=== PATIENT | male | born 1975 | race Caucasian/White ===

== ENCOUNTER 2016-10-13 12:49 | Emergency (ER) | payer OTHER ==
--- NOTE | 2016-10-13 13:47 | RAD ---
INDICATION: Knee pain after fall COMPARISON: MRI knee April 22, 2016. FINDINGS: There is resection of the femur at the junction of the middle and distal third of the diaphysis with a prosthesis in place. There is a tibial component. Both components appear well seated. There is fluid around the joint space. IMPRESSION: POSTOPERATIVE CHANGE. NO EVIDENCE OF HARDWARE FAILURE.
[2016-10-13 14:18] VITALS: BP 107/65
--- NOTE | 2016-10-16 10:17 | ED ---
Lower Extremity - HPI Summary HPI Summary: Patient presents to ED with CC of knee pain after falling recently. He feels he may have fallen directly onto the hardware of the knee cap. 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 He is followed by [facility]. He denies any more intense pain, but there is some slight swelling to the lateral knee. He denies hitting his head, LOC. He is ambulating, but with some pain at baseline. Still using crutches. Pulses +2 bilaterally and cap refill < 2 sec. Denies any other health problems. Non-smoker. Lives with . Has close ortho follow up at [facility] and [facility]. Requesting images to make sure the hardware has not shifted or caused further damage to the knee. - History of Current Complaint Chief Complaint: EDExtremityLower Stated Complaint: NEEDS RT KNEE XRAY Time Seen by Provider: 10/13/16 12:57 Hx Obtained From: Patient Mechanism Of Injury: Direct Blow Onset of Pain: Immediate Onset/Duration: Days Severity Initially: Mild Severity Currently: Mild Pain Intensity: 2 Pain Scale Used: 0-10 Numeric Timing: Intermittent Location: Is Discrete @ - left knee Associated Signs And Symptoms: Positive: Swelling Aggravating Factor(s): Standing, Ambulation Alleviating Factor(s): Rest Able to Bear Weight: Yes - Risk Factors Gout Risk Factors: Age Over 40, Male DVT Risk Factors: Negative, Recent Surgery, Recent Trauma Septic Arthritis Risk Factor: Negative - Allergies/Home Medications Allergies/Adverse Reactions: Allergies Allergy/AdvReac Type Severity Reaction Status Date / Time Gluten Meal Allergy Unknown GI Verified 04/18/16 09:56 PMH/Surg Hx/FS Hx/Imm Hx Previously Healthy: Yes Endocrine/Hematology History: Denies: Hx Anticoagulant Therapy, Hx Blood Disorders, Hx Diabetes, Hx Anemia , Hx Unexplained Bleeding Cardiovascular History: Denies: Hx Congestive Heart Failure, Hx Hypertension, Hx Pacemaker/ICD Respiratory History: Reports: Hx Asthma - controlled with meds, Hx Pneumonia - 1994 History: Denies: Hx Renal Disease Sensory History: Denies: Hx Hearing Aid Psychiatric History: Denies: Hx Panic Disorder - Surgical History Surgery Procedure, Year, and Place: hernia repair age 3. Rt KNEE - REMOVAL TUMOR ( BENIGN) - Immunization History Hx Pertussis Vaccination: No Immunizations Up to Date: Unable to Obtain/Confirm Infectious Disease History: Denies: Traveled Outside the [place] in Last 30 Days - Family History Known Family History: Positive: Respiratory Disease - Social History Occupation: Employed Full-time Lives: With Family Alcohol Use: None Hx Substance Use: No Substance Use Type: Reports: None Hx Tobacco Use: No Smoking Status (MU): Never Smoked Tobacco Amount Used/How Often: 3packs per week Length of Time of Smoking/Using Tobacco: 17yr Have You Smoked in the Last Year: No Review of Systems Constitutional: Negative Negative: Fever, Fatigue Eyes: Negative Cardiovascular: Negative Negative: Chest Pain Respiratory: Negative Negative: Shortness Of Breath Positive: no symptoms reported Positive: Arthralgia - right knee pain and swelling Skin: Negative Psychological: Normal All Other Systems Reviewed And Are Negative: Yes Physical Exam Triage Information Reviewed: Yes Vital Signs On Initial Exam: Initial Vitals Temp Pulse Resp BP Pulse Ox 98.3 F 74 18 100/65 99 10/13/16 12:50 10/13/16 12:50 10/13/16 12:50 10/13/16 12:50 10/13/16 12:50 Vital Signs Reviewed: Yes Appearance: Positive: Well-Appearing, Well-Nourished Skin: Positive: Warm, Skin Color Reflects Adequate Perfusion. Negative: Numb, Tender Head/Face: Positive: Normal Head/Face Inspection Eyes: Positive: EOMI, LOCO, Conjunctiva Clear Neck: Positive: Supple, No Lymphadenopathy Respiratory/Lung Sounds: Positive: Clear to Auscultation, Breath Sounds Present Cardiovascular: Positive: Normal, RRR, Pulses are Symmetrical in both Upper and Lower Extremities. Negative: Tachycardia Musculoskeletal: Positive: Strength/ROM Intact, Pain @ - right knee with swelling. Negative: Scarlet Sign Left, Scarlet Sign Right, Edema Left, Edema Right Neurological: Positive: Speech Normal Psychiatric: Positive: Normal Diagnostics - Vital Signs Vital Signs Temp Pulse Resp BP Pulse Ox 10/13/16 14:17 98.9 F 68 17 107/65 10/13/16 12:50 98.3 F 74 18 100/65 99 - Laboratory Lab Statement: Any lab studies that have been ordered have been reviewed, and results considered in the medical decision making process. Lower Extremity Course/Dx - Course Course Of Treatment: Patient is sent to [facility]. Hardware in place with no acute findings. Patient made aware. He is Ok for discharge and will follow up with [facility] ortho. - Diagnoses Differential Diagnosis/HQI/PQRI: Positive: Fracture (Closed), Fracture (Open), Other - recent surgery Provider Diagnoses: Knee pain, acute Discharge - Discharge Plan Condition: Stable Disposition: HOME Patient Education Materials: Knee Pain (ED) Referrals: Chaitanya Sandoval MD [Primary Care Provider] - Wilfrido Zee MD [Medical Doctor] - Additional Instructions: Ibuprofen 600mg three times daily for pain and inflammation Ice Rest Elevate as needed for any swelling Follow up with ortho Call and make an appt to establish care.
== END 2016-10-13 14:20 | disposition home or self-care (01) ==
LOC: ED 12:49
DX: M25.561 Pain in right knee (principal); R60.9 Edema, unspecified
CPT/HCPCS: 99281

== ENCOUNTER 2017-02-19 07:59 | Emergency (ER) | payer OTHER ==
--- NOTE | 2017-02-19 08:56 | RAD ---
INDICATION: Right knee pain after a fall in a patient with a right knee prosthesis. COMPARISON: Similar radiograph dated October 13, 2016 TECHNIQUE: 5 view radiograph of the right knee. FINDINGS: The right knee prosthesis is anatomically aligned in the AP and lateral projections. There are cerclage wires overlying the distal femoral metaphysis are intact. There is no definite large joint effusion. There is no radiographic appearance of periprosthetic fracture or loosening. IMPRESSION: Anatomically aligned right knee prosthesis without evidence of fracture or loosening. If the patient's symptoms persist, follow-up imaging is recommended.
[2017-02-19 09:22] VITALS: BP 96/70
--- NOTE | 2017-02-19 18:52 | ED ---
Koko Mak Angela, scribed for Stephanie Villegas MD on 02/19/17 at 0818 . Lower Extremity - HPI Summary HPI Summary: This pt is a 41 y/o male presenting to [facility] c/o right knee pain s/p mechanical fall onto his right total knee replacement 2 days ago. Pt reports he slipped on ice and fell on his right knee. Pt states this is the second time he has fallen on right knee. The first time he fell on his right knee was on 10/13/16 where he had an XR done, which resulted negative. He notes he had a right knee replacement done at the end of July 2016 (done in [facility]) due to a giant cell benign tumor. He states it was in the condyle and "it had eaten the whole thing up," which is why he had to get a replacement done. Pt reports that he is able to bend his right knee, "but can't bend it as usual." Additionally, pt notes more swelling in the right knee than normal. He rates his pain 0/10 in severity currently. Pt is able to bear weight and ambulate with right lower extremity. NKDA. Pt denies taking any medications on a daily basis. Pt declines pain medication on initial encounter. - History of Current Complaint Chief Complaint: EDExtremityLower Stated Complaint: FALL, RIGHT KNEE INJURY Time Seen by Provider: 02/19/17 08:05 Hx Obtained From: Patient Mechanism Of Injury: Fall From A Standing Position Onset of Pain: Post Accident Onset/Duration: Still Present Severity Initially: Moderate Severity Currently: Mild Pain Intensity: 0 Pain Scale Used: 0-10 Numeric Timing: Constant, Lasting Days Location: Is Discrete @ - right knee Character Of Pain: Sharp Associated Signs And Symptoms: Positive: Swelling, Knee Pain. Negative: Redness , Bruising, Fever, Syncope, Abdominal Pain Aggravating Factor(s): Other - bending knee Alleviating Factor(s): Rest Able to Bear Weight: Yes - Allergies/Home Medications Allergies/Adverse Reactions: Allergies Allergy/AdvReac Type Severity Reaction Status Date / Time Gluten Meal Allergy Unknown GI Verified 04/18/16 09:56 PMH/Surg Hx/FS Hx/Imm Hx Previously Healthy: No - giant cell tumor of right knee Endocrine/Hematology History: Denies: Hx Anticoagulant Therapy, Hx Blood Disorders, Hx Diabetes, Hx Anemia , Hx Unexplained Bleeding Cardiovascular History: Denies: Hx Congestive Heart Failure, Hx Hypertension, Hx Pacemaker/ICD Respiratory History: Reports: Hx Asthma - controlled with meds, Hx Pneumonia - 1994 History: Denies: Hx Renal Disease Sensory History: Denies: Hx Hearing Aid Psychiatric History: Denies: Hx Panic Disorder - Surgical History Surgery Procedure, Year, and Place: hernia repair age 3. Rt KNEE - REMOVAL TUMOR ( BENIGN) Infectious Disease History: No Infectious Disease History: Denies: Traveled Outside the [place] in Last 30 Days - Family History Known Family History: Positive: Respiratory Disease - emphysema Negative: Cardiac Disease, Other - [place] - Social History Alcohol Use: None Substance Use Type: Reports: None Smoking Status (MU): Never Smoked Tobacco Amount Used/How Often: 3packs per week Length of Time of Smoking/Using Tobacco: 17yr Have You Smoked in the Last Year: No Review of Systems Negative: Fever, Chills Eyes: Negative ENT: Negative Cardiovascular: Negative Respiratory: Negative Gastrointestinal: Negative Musculoskeletal: Other - right knee pain Positive: Edema - right knee Skin: Negative Neurological: Negative Psychological: Normal All Other Systems Reviewed And Are Negative: Yes Physical Exam - Summary Physical Exam Summary: Appearance: Well-appearing, mild pain distress, Well-nourished Skin: Warm, color reflects adequate perfusion, no bruising Head: Normal Head/Face inspection Eyes: Conjunctiva clear ENT: Normal inspection Neck: Supple Respiratory: Lungs clear, Normal breath sounds, no respiratory distress Cardio: RRR, No murmur, pulses normal, brisk capillary refill Musculoskeletal: Strength Intact/ ROM intact. Tenderness on the right lateral thigh and dorsum of knee. Swelling right knee, no effusion. Full extension. Flexion approx 120 degrees, but pt states less than usual. Neuro: Alert, muscle tone normal, facial symmetry, speech normal, sensory/motor intact Psychological: Normal Triage Information Reviewed: Yes Vital Signs On Initial Exam: Initial Vitals Temp Pulse Resp BP Pulse Ox 97.5 F 62 18 92/70 98 02/19/17 07:59 02/19/17 07:59 02/19/17 07:59 02/19/17 07:59 02/19/17 07:59 Vital Signs Reviewed: Yes Diagnostics - Vital Signs Vital Signs Temp Pulse Resp BP Pulse Ox 02/19/17 07:59 97.5 F 62 18 92/70 98 - Laboratory Lab Statement: Any lab studies that have been ordered have been reviewed, and results considered in the medical decision making process. - Radiology Right knee XR Xray Interpretation: No Acute Changes - IMPRESSION: Anatomically aligned right knee prosthesis without evidence of fracture or loosening. If the patient's symptoms persist, follow-up imaging is recommended. Dr. Villegas has reviewed this radiology report. Radiology Interpretation Completed By: Radiologist Re-Evaluation - Re-Evaluation First Eval Re-Evaluation Time: 09:26 Comment: I informed the pt of the knee XR results. I advised the pt to follow up with orthopedics. Lower Extremity Course/Dx - Course Course Of Treatment: Pt medications reviewed this visit. Allergies noted. Right knee XR shows anatomically aligned right knee prosthesis without evidence of fracture or loosening. If the patient's symptoms persist, follow-up imaging is recommended. I informed the pt of the knee XR results. I advised the pt to follow up with orthopedics. He understands and is agreeable with the discharge plan. - Diagnoses Differential Diagnosis/HQI/PQRI: Positive: Contusion, Fracture (Closed), Sprain , Strain Provider Diagnoses: Contusion of right knee, S/P total knee replacement Discharge - Discharge Plan Condition: Stable Disposition: HOME Patient Education Materials: Knee Pain (ED) Referrals: Chaitanya Sandoval MD [Primary Care Provider] - Charlotte Goldman MD [Medical Doctor] - 1 Week (follow up with orthopedics if needed. ) Additional Instructions: RETURN TO THE EMERGENCY DEPARTMENT FOR ANY NEW OR WORSENING SYMPTOMS. The documentation as recorded by the Koko miranda Angela accurately reflects the service I personally performed and the decisions made by , Stephanie Villegas MD.
== END 2017-02-19 09:54 | disposition home or self-care (01) ==
LOC: ED 07:59
DX: S80.01XA Contusion of right knee, initial encounter (principal); M25.561 Pain in right knee; Z47.1 Aftercare following joint replacement surgery; W19.XXXA Unspecified fall, initial encounter; Y93.9 Activity, unspecified; Y92.9 Unspecified place or not applicable
CPT/HCPCS: 99281